=== PATIENT | female | born 1975 | race Caucasian/White ===

== ENCOUNTER → 2023-08-24 12:51 | Outpatient (REF) | payer BC, SELFPAY | LOC: HWRAD 12:51 | PROVIDERS: ATTENDING PHYSICIAN Surgery; FAMILY PHYSICIAN Internal Medicine | DX: N39.0 Urinary tract infection, site not specified (principal); N20.0 Calculus of kidney; Z87.442 Personal history of urinary calculi | CPT/HCPCS: 74176 ==

== ENCOUNTER → 2023-11-15 17:40 | Outpatient (REF) | payer BC, SELFPAY | LOC: HWRAD 17:40 | PROVIDERS: ATTENDING PHYSICIAN Surgery; FAMILY PHYSICIAN Internal Medicine | DX: N20.0 Calculus of kidney (principal) | CPT/HCPCS: 74018 ==